=== PATIENT | female | born 1980 | race Two or more races ===

== ENCOUNTER 2017-01-12 16:49 | Emergency (ER) | payer OTHER ==
[2017-01-12 17:15] VITALS: BP 137/89; PULSE 75; RESP 16; TEMP 98.2; O2SAT 96
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
== END 2017-01-12 18:59 | disposition home or self-care (01) ==
LOC: CED 16:49
DX: S16.1XXA Strain of muscle, fascia and tendon at neck level, initial encounter (principal); M25.552 Pain in left hip
CPT/HCPCS: 72040-PO; 72170-PO; G0463-PO